=== PATIENT | male | born 1975 | race Caucasian/White ===

== ENCOUNTER 2016-07-28 09:35 | Emergency (ER) | payer MEDICAID ==
[~2016-07-28] VITALS: Ht 182.9 cm; Wt 140.6 kg
[~2016-07-28 09:35] MED LIST: HYDR-4446 PO; ZOLP10TA1 PO
[2016-07-28 09:51] VITALS: BP 139/73
--- NOTE | 2016-07-28 10:00 | NUR ---
Patient ambulated to bed 05.
--- NOTE | 2016-07-28 10:00 | NUR ---
40M BIB SELF C/O RT SIDED FACIAL SWELLING W/ RT SIDED BLURRY VISION X THIS MORNING; PT STATES " I JUST WOKE UP LIKE THIS"; PT C/O PRESSURE TO RT SIDE OF NECK, NON-RADIATING, 6/10 X 1 HR PRIOR TO ARRIVAL TO ER; PT DENIES TRAUMA OR INJURY TO SITE; PT A&OX4, PERRLA, BL LUNG SOUNDS CLEAR, RR EVEN/UNLABORED, SKIN IS WARM/DRY/INTACT AT THIS TIME; DENIES N/V/D AT THIS TIME; STEADY GAIT; PT RESTING IN BED W/ HOB ELEVATED AND IN LOWEST POSITION; POSITIONED FOR COMFORT; ER MD MADE AWARE OF STATUS. WILL CONTINUE TO MONITOR.
--- NOTE | 2016-07-28 10:01 | NUR ---
Dr. Brock evaluating patient at bedside.
[2016-07-28] MEDS ORDERED: cefTRIAXone 1,000 MG in LIDOCAINE 1% ED 2.1 ML IM ONE (10:05)
[2016-07-28] MEDS ORDERED: IBUPROFEN 600 MG TAB PO ONE (10:05)
--- NOTE | 2016-07-28 10:17 | NUR ---
PT TAKEN TO CT VIA W/C ACCOMPANIED BY [employer] AT THIS TIME
--- NOTE | 2016-07-28 10:27 | NUR ---
Patient back from CT via wheelchair per tech.
[2016-07-28 11:05] VITALS: BP 127/71
--- NOTE | 2016-07-28 11:05 | NUR ---
Patient discharged with v/s stable. Written and verbal after care instructions given and explained. Patient alert, oriented and verbalized understanding of instructions. Ambulatory with steady gait. All questions addressed prior to discharge. ID band removed. Patient advised to follow up with PMD. Rx of MOTRIN 600MG TAB & LEVAQUIN 500MG TAB given. Patient educated on indication of medication including possible reaction and side effects. Opportunity to ask questions provided and answered.
== END 2016-07-28 11:05 | disposition home or self-care (01) ==
LOC: MED 09:35
DX: L03.211 Cellulitis of face (principal); K21.9 Gastro-esophageal reflux disease without esophagitis; Z88.0 Allergy status to penicillin; Z98.84 Bariatric surgery status
CPT/HCPCS: 70450; 70486; 96372; 99284; J0696; J2001

== ENCOUNTER 2016-10-01 09:44 | Inpatient (IN) | payer MEDICAID ==
[~2016-10-01] VITALS: Ht 177.8 cm; Wt 137.4 kg
[2016-10-01 09:51] VITALS: BP 127/76
--- NOTE | 2016-10-01 09:56 | NUR ---
Patient ambulated to bed 4.
--- NOTE | 2016-10-01 10:00 | NUR ---
PATIENT PRESENTS TO ED WITH severe right lower/flank pain radiating ruq with n/v . PT STATES worst pain ever . DENIES diarrhea; SKIN IS PINK/WARM/DRY; AAOX4 WITH EVEN AND STEADY GAIT; LUNGS CLEAR BL; HR EVEN AND REGULAR; PT DENIES ANY FEVER, CP, SOB, OR COUGH AT THIS TIME; PATIENT STATES PAIN OF 10/10 AT THIS TIME; VSS; PATIENT POSITIONED FOR COMFORT; HOB ELEVATED; BEDRAILS UP X2; BED DOWN. ER MD MADE AWARE OF PT STATUS.
[2016-10-01] MEDS ORDERED: HYDROmorphone 1 MG/ML AMP IVP ONE ×2 (10:15→10:40)
[2016-10-01] MEDS ORDERED: ONDANSETRON 4 MG/2 ML VIAL IVP ONE (10:15)
[2016-10-01] MEDS ORDERED: NACL 0.9% 1,000 ML IV ONE ×3 (10:15→11:35)
[2016-10-01 10:46] LABS: HEMATOCRIT 39.9 % (36-52); HEMOGLOBIN 12.9 g/dL (12.0-18.0); MEAN CORPUSCULAR HEMOGLOBIN 27 pg (27-31); MEAN CORPUSCULAR HGB CONC 32 g/dL (33-37); MEAN CORPUSCULAR VOLUME 83 fL (80-94); PLATELET COUNT (AUTO) 218 K/uL (140-450); RED BLOOD CELL COUNT(AUTO) 4.82 MIL/uL (4.20-6.10); RED CELL DISTRIBUTION WIDTH 15.7 % (11.6-13.7); WHITE BLOOD COUNT (AUTO) 5.6 K/uL (4.8-10.8)
[2016-10-01 10:47] LABS: ANION GAP 16.9 (8-16); CALCIUM 8.6 mg/dL (8.5-10.1); CARBON DIOXIDE 24.5 mmol/L (21-32); CREATININE 1.1 mg/dL (0.7-1.3); POTASSIUM 4.4 mmol/L (3.5-5.1)
--- NOTE | 2016-10-01 10:49 | NUR ---
medicated for pain control, will continue to observe pain management---remains a/o x4 , sister at bedside. x2 sr up
[2016-10-01 10:54] LABS: TOTAL BILIRUBIN 0.5 mg/dL (0.0-1.0)
[2016-10-01 10:58] LABS: BAND % (MANUAL) 1 % (0-8); EOSINOPHILS % (MANUAL) 3 % (0-4); LYMPHOCYTES % (MANUAL) 36 % (20-46); MONOCYTES % (MANUAL) 3 % (5-12); NEUTROPHILS % (MANUAL) 57 (43-65)
[2016-10-01 10:59] LABS: LACTIC ACID 5.3 mmol/L (0.4-2.0)
[2016-10-01 11:03] LABS: ALBUMIN 3.9 g/dL (3.4-5.0)
[2016-10-01] MEDS ORDERED: DIAZEPAM PFS 10 MG/2 ML SYR ONE (11:08)
[2016-10-01] MEDS ORDERED: DIAZEPAM PFS 10 MG/2 ML SYR IVP ONE (11:10)
[2016-10-01] MEDS ORDERED: LEVOFLOXACIN 750 MG/D5W PREMIX 150 ML IV ONE (11:10)
[2016-10-01] MEDS ORDERED: VANCOMYCIN 1,000 MG in DEXTROSE 5% 250 ML IV ONE (11:10)
[2016-10-01 11:14] LABS: APPEARANCE,URINE CLEAR (CLEAR); BILIRUBIN,URINE NEGATIVE (NEGATIVE); BLOOD, URINE NEGATIVE (NEGATIVE); COLOR,URINE YELLOW (YELLOW); LEUKOCYTE ESTERASE ,URINE NEGATIVE (NEGATIVE); NITRITE, URINE NEGATIVE (NEGATIVE); PH,URINE 5.5 (5.0-9.0); PROTEIN,URINE NEGATIVE (NEGATIVE); UGLUCOSE NEGATIVE (NEGATIVE)
--- NOTE | 2016-10-01 11:15 | NUR ---
pt continues to sob c/o severe pain with seconds of relief----MD at bedside
[2016-10-01] MEDS ORDERED: HYDROmorphone PFS 2 MG/ML SYR IVP ONE ×2 (11:20→13:50)
[2016-10-01 11:40] LABS: BACTERIA,URINE 0-2 (RARE) /HPF (None Seen); SQUAMOUS EPITHELIAL CELL,UR 0-3 (FEW) /LPF (0-3 (FEW))
[2016-10-01 11:42] LABS: RBC,URINE NONE SEEN /HPF (0-5); WBC,URINE 0-2 /HPF (0-5)
--- NOTE | 2016-10-01 11:48 | NUR ---
notified CT requires 20ga or bigger iv---we have made 5 attempts with no success---pt currently has a 24ga
--- NOTE | 2016-10-01 12:36 | NUR ---
NO CONTRAST REQUIRED FOR CT NOW---PT WENT AND RETURNED FROM CT----CONTINUES TO ADMIT PAIN AT A TOLERABLE LEVEL 5/10 PAIN SCALE AT THIS TIME.
[2016-10-01] MEDS ORDERED: VANCOMYCIN 1,000 MG VIAL ONE (12:39)
[2016-10-01] MEDS ORDERED: ACETAMINOPHEN 325 MG TAB PO PRN (13:55)
[2016-10-01] MEDS ORDERED: DOCUSATE SODIUM 100 MG GELCAP PO PRN (13:55)
[2016-10-01] MEDS ORDERED: ONDANSETRON 4 MG/2 ML VIAL IM/IVP PRN (13:55)
[2016-10-01] MEDS ORDERED: HYDROcodone/APAP 7.5/325 MG 1 TAB PO PRN (13:55)
[2016-10-01] MEDS ORDERED: MORPHINE SULFATE 2 MG/ML SYR IVP PRN (13:55)
--- NOTE | 2016-10-01 14:24 | NUR ---
SITTING UP IN [facility]--ADMITS PAIN IS STARTING TO RISE 10/04 AT THIS TIME---WILL MEDICATE WRITTEN. A/O X4 HOLDING CONVERSATION WITH ME AT BEDSIDE. SISTER AT BEDSIDE. PT AWARE WILL BE ADMITTED
--- NOTE | 2016-10-01 14:27 | NUR ---
Pt transferred to Tele via [facility]
[2016-10-01 14:43] LABS: PARTIAL THROMBOPLASTIN TIME 27.2 secs (22-35.6); PROTHROMBIN TIME 10.2 secs (10.8-13.4)
[2016-10-01 14:57] LABS: MAGNESIUM 1.9 mg/dL (1.8-2.4); PHOSPHORUS 2.8 mg/dL (2.5-4.9); THYROID STIMULATING HORMONE 1.22 uIU/mL (0.34-3.74)
[2016-10-01 15:15] VITALS: BP 130/76
--- NOTE | 2016-10-01 15:20 | NUR ---
PATIENT ARRIVED TO THE UNIT FROM ER. PATIENT AWAKE, ALERT AND ORIENTED. PATIENT ON ROOM AIR. NO SOB. PATIENT REPORTS OF 5/10 ABD PAIN RADIATING TO HIS BACK. PATIENT WAS MEDICATED IN ER. WILL REASSESSES. IV LINE NOTED TO THE LEFT FOREARM. PATIENT PLACED ON TELE MONITORING. BED LOWERED WITH CALL LIGHT WITHIN REACH. WILL CONTINUE TO MONITOR
[2016-10-01] MEDS ORDERED: ZOLPIDEM 10 MG TAB PO ONE (15:25)
[2016-10-01] MEDS ORDERED: PHENOL/MENTHOL 177 ML BTL MM PRN (15:35)
[2016-10-01] MEDS: NACL 0.9% 1,000 ML IV SCH ×2 (15:46→22:30)
[2016-10-01 16:00] VITALS: BP 130/69
[2016-10-01] MEDS ORDERED: BENZOCAINE 20% 57 GM CAN MC PRN (16:15)
[2016-10-01] MEDS: HYDROmorphone 1 MG/ML AMP IVP PRN ×2 (17:57→21:07)
--- NOTE | 2016-10-01 18:48 | NUR ---
ATTEMPTED TO INSERT NGT. PATIENT DID NOT TOLERATE WELL. PATIENT REFUSED TO HAVE IT REINSERTED. PATIENT SEEN BY DR MERCHANT AND WAS EDUCATED ABOUT THE RISK AND COMPLICATION OF HAVING A PERFORATED BOWEL IF HE DOES NOT COMPLY WITH HAVING AN NGT. PATIENT VERBALIZED UNDERSTANDING
--- NOTE | 2016-10-01 19:20 | NUR ---
PATIENT REPORT GIVEN AT BEDSIDE. PATIENT ENDORSED IN STABLE CONDITION
--- NOTE | 2016-10-01 19:25 | NUR ---
RECEIVED REPORTS FROM DAY RN. PATIENT RESTING IN BED, NO S/S OF ACUTE DISTRESS NOTED, ALERT AWAKE AND ORIENTED X4. PATIENT DENIES PAIN AT THIS TIME. IV PATENT AND INTACT, FLUIDS INFUSING WELL. PLAN OF CARE DISCUSSED, VERBALIZED UNDERSTANDING. CALL LIGHT WITHIN REACH, SAFETY MEASURE ENSURED, WILL CONTINUE TO MONITOR.
--- NOTE | 2016-10-01 19:45 | NUR ---
PATIENT SEEN AND EXAMINED BY DR. CAMARA.
[2016-10-01 19:59] LABS: INR 1.1 (0.8-1.2); PARTIAL THROMBOPLASTIN TIME 27.6 secs (22-35.6)
[2016-10-01 20:00] VITALS: BP 122/71
--- NOTE | 2016-10-01 21:07 | NUR ---
PATIENT REPORTED LOWER BACK PAIN 8. DILAUDID GIVEN ORDERED. WILL CONTINUE TO MONITOR
--- NOTE | 2016-10-01 21:50 | NUR ---
REASSESSED PAIN LEVEL AT 2136, PATIENT STATED " PAIN MEDICATION DOES NOT WORK. CAN I HAVE NORCO NOW?" MADE DR. CAMARA AWARE THAT PATIENT REQUESTED NORCO. DR. JAX GOODWIN," I WILL GO AND ASSESS THE PATIENT."
--- NOTE | 2016-10-01 22:10 | NUR ---
DR. CAMARA SAYS," YOU CAN GIVE HIM NORCO."
--- NOTE | 2016-10-01 22:23 | NUR ---
IS AWARE THAT PATIENT RECEIVED 2MG DILAUDID. PATIENT BP 12/73, HR 66. LOWER BACK PAIN LEVEL 6/10 AT THIS TIME, WILL MEDICATE NORCO ORDERED.
[2016-10-01] MEDS: HYDROcodone/APAP 10/325 MG 1 TAB TAB PO PRN (22:26)
[2016-10-02] VITALS: BP 120/63
--- NOTE | 2016-10-02 00:10 | NUR ---
PATIENT REPORTED PAIN 11/04, VITAL SIGNS TAKEN, WITHIN NORMAL RANGE. DILAUDID GIVEN ORDERED, WILL CONTINUE TO MONITOR. Addendum: 10/02/16 at 0351 by Davida Massey RN DILAUDID GIVEN AT 0102.
[2016-10-02] MEDS: ZOLPIDEM 10 MG TAB PO PRN ×3 (01:02→22:33)
[2016-10-02] MEDS: HYDROmorphone 1 MG/ML AMP IVP PRN ×13 (01:02→21:27)
[2016-10-02] MEDS: HYDROcodone/APAP 10/325 MG 1 TAB TAB PO PRN ×5 (02:59→20:08)
--- NOTE | 2016-10-02 02:59 | NUR ---
PATIENT REPORTED PAIN 6/10. NORCO GIVEN ORDERED, WILL CONTINUE TO MONITOR.
[2016-10-02 04:00] VITALS: BP 111/67
[2016-10-02] MEDS: NACL 0.9% 1,000 ML IV SCH ×2 (04:22→11:00)
--- NOTE | 2016-10-02 04:28 | NUR ---
PATIENT STATED PAIN 8/10. DILAUDID GIVEN ORDERED, WILL CONTINUE TO MONITOR.
[2016-10-02 06:25] LABS: BASOPHILS # (AUTO) 0.1 K/uL (0.00-0.22); EOSINOPHILS # (AUTO) 0.1 K/uL (0-0.4); MONOCYTES # (AUTO) 0.3 K/uL (0.8-1.0); NEUTROPHILS % (AUTO) 61.8 % (42.2-75.2); RED BLOOD CELL COUNT(AUTO) 3.99 MIL/uL (4.20-6.10); WHITE BLOOD COUNT (AUTO) 4.6 K/uL (4.8-10.8)
--- NOTE | 2016-10-02 06:35 | NUR ---
PATIENT HAS BEEN SCREENED AND CATEGORIZED HIGH NUTRITION RISK. PATIENT WILL BE SEEN WITHIN 1-2 DAYS OF ADMISSION. 10/02/16-10/03/16 JOHN ESTRADA MS, RDN
[2016-10-02 06:54] LABS: BASOPHILS % (AUTO) 1.8 % (0.0-2.0); EOSINOPHILS % (AUTO) 2.1 % (0.0-4.0); HEMATOCRIT 33.4 % (36-52); HEMOGLOBIN 10.6 g/dL (12.0-18.0); LYMPHOCYTES # (AUTO) 1.3 K/uL (2.0-11.5); LYMPHOCYTES % (AUTO) 27.5 % (20.5-51.1); MEAN CORPUSCULAR HEMOGLOBIN 27 pg (27-31); MEAN CORPUSCULAR HGB CONC 32 g/dL (33-37); MEAN CORPUSCULAR VOLUME 84 fL (80-94); MONOCYTES % (AUTO) 6.8 % (1.7-9.3); NEUTROPHILS # (AUTO) 2.8 K/uL (1.8-7.7); PLATELET COUNT (AUTO) 173 K/uL (140-450); RED CELL DISTRIBUTION WIDTH 15.4 % (11.6-13.7)
--- NOTE | 2016-10-02 07:26 | NUR ---
RECEIVED PATIENT REPORT AT BEDSIDE. PATIENT AWAKE, ALERT AND ORIENTED. PATIENT C/O 6/10 LEFT FLANK PAIN. PATIENT WAS MEDICATED. WILL CONTINUE TO MONITOR. IV LINE TO THE LEFT WRIST INTACT WITH IVF INFUSING WELL. PATIENT ON TELE MONITORING. BED LOWERED WITH CALL LIGHT WITHIN REACH
--- NOTE | 2016-10-02 07:26 | NUR ---
ENDORSED PLAN OF CARE TO DAY RN. PATIENT IS IN STABLE CONDITION.
[2016-10-02 07:43] LABS: ANION GAP 13.2 (8-16); CALCIUM 7.7 mg/dL (8.5-10.1); CARBON DIOXIDE 24.5 mmol/L (21-32); CREATININE 0.8 mg/dL (0.7-1.3); POTASSIUM 3.7 mmol/L (3.5-5.1)
[2016-10-02 08:00] VITALS: BP 125/72
[2016-10-02 09:13] LABS: T4 (THYROXINE) 7.4 ug/dL (4.5-12.0)
--- NOTE | 2016-10-02 10:03 | NUR ---
10/02/16 RD INITIAL ASSESSMENT COMPLETED PLEASE REFER TO NUTRITION ASSESSMENT UNDER CARE ACTIVITY FOR ESTIMATED NUTRITIONAL NEEDS. RD RECOMMENDATIONS: 1. CONTINUE NPO MEDICALLY APPROPRIATE. 2. INITIATED NUTRITION WHEN MEDICALLY APPROPRIATE. 3. CONSULT RD PRN. 4. RD WILL F/U 2-3 DAYS; HIGH RISK. JOHN ESTRADA MS, RDN
[2016-10-02 12:00] VITALS: BP 127/77
--- NOTE | 2016-10-02 13:30 | NUR ---
PATIENT TAKEN OFF THE UNIT FOR SURGERY
[2016-10-02] MEDS ORDERED: fentaNYL 0.05 MG/ML VIAL ONE (13:57)
[2016-10-02] MEDS ORDERED: MIDAZOLAM 2 MG/2 ML VIAL ONE (13:57)
[2016-10-02] MEDS ORDERED: ROCURONIUM 50 MG/5 ML VIAL IV ONE (13:58)
[2016-10-02] MEDS ORDERED: PHENYLEPHRINE 10 MG/ML VIAL ONE (13:58)
[2016-10-02] MEDS ORDERED: DESFLURANE 240 ML BTL INH ONE (13:58)
[2016-10-02] MEDS ORDERED: KETOROLAC 30 MG/ML VIAL ONE (13:58)
[2016-10-02] MEDS ORDERED: SUCCINYLCHOLINE CHLORIDE 200 MG/10 ML VIAL IVP ONE (13:58)
[2016-10-02] MEDS ORDERED: DEXAMETHASONE 4 MG/ML VIAL ONE (13:58)
[2016-10-02] MEDS ORDERED: LIDOCAINE 2% 100 MG/5 ML SYR IVP ONE (13:58)
[2016-10-02] MEDS ORDERED: ONDANSETRON 4 MG/2 ML VIAL ONE (13:58)
[2016-10-02] MEDS ORDERED: PROPOFOL 200 MG/20 ML VIAL IV ONE (13:58)
[2016-10-02] MEDS ORDERED: GLYCOPYRROLATE 0.2 MG/ML VIAL ONE (13:58)
[2016-10-02] MEDS ORDERED: LEVOFLOXACIN 500 MG/D5W PREMIX 100 ML IV SCH (14:15)
[2016-10-02] MEDS ORDERED: ONDANSETRON 4 MG/2 ML VIAL IVP PRN (14:45)
[2016-10-02 15:07] LABS: HEMOGLOBIN A1C 5.6 % (4.8-5.6)
[2016-10-02] MEDS ORDERED: BUPIVACAINE-MPF/EPI 0.25% 30 ML VIAL INJ ONE (15:36)
[2016-10-02] MEDS ORDERED: HYDROmorphone PFS 2 MG/ML SYR ONE ×2 (16:18→16:47)
[2016-10-02 17:17] VITALS: BP 130/77
--- NOTE | 2016-10-02 17:17 | NUR ---
PATIENT BACK IN THE UNIT FROM SURGERY. PATIENT AWAKE, ALERT AND ORIENTED. PATIENT REPORTS OF 8/10 ABD PAIN. DRESSING NOTED TO THE ABD CLEAN DRY AND INTACT. NGT IN PLACE. NGT SET TO LOW INTERMITTENT SUCTION. TEMP 98.0 BP: 130/77 HR: 71 O2SAT: 99% ON ROOM AIR. WILL CONTINUE TO MONITOR
[2016-10-02] MEDS: DEXT 5% / NACL 0.45% 1,000 ML IV SCH (17:42)
--- NOTE | 2016-10-02 18:53 | NUR ---
PATIENT CALMLY RESTING IN BED, WATCHING VIDEOS ON HIS PHONE. PATIENT REPORTS OF DECREASED PAIN OF 3/10 IN HIS ABD
--- NOTE | 2016-10-02 19:18 | NUR ---
PATIENT REPORT GIVEN AT BEDSIDE. PATIENT ENDORSED IN STABLE CONDITION
--- NOTE | 2016-10-02 19:19 | NUR ---
PATIENT IS CURRENTLY RESTING IN BED HAS NGTUBE CONNECTED TO LOW INTERMITTENT SUCTION.NGT WELL SECURED WITH TEGADERM.PATIENT DENIES PAIN AT THIS TIME NO COMPLAINS OF NAUSEA.PATIENT HAS A MIDLINE INCISION TO ABDOMEN COVERED WITH A DRESSING. PATIENT RESTING IN BED AND HAS SCD'S TO BOTH LOWER EXTREMITIES EDUCATION GIVEN ON THE IMPORTANCE OF SCD'S TO PREVENT DVT PT VERBALIZES UNDERSTANDING.
[2016-10-02 20:00] VITALS: BP 105/70
--- NOTE | 2016-10-02 20:00 | NUR ---
Patient's Plan of Care was discussed and reviewed with CELL BIOLOGY SCIENTIST: LIZ Andrew
--- NOTE | 2016-10-02 20:08 | NUR ---
PATIENT COMPLAINS OF PAIN MODERATE PAIN TO ABDOMEN WAS MEDICATED WITH NORCO ORDERED WILL CONTINUE TO MONITOR.
--- NOTE | 2016-10-02 22:33 | NUR ---
PATIENT IS CURRENTLY RESTING IN BED USING HIS PHONE ,PATIENT COMPLAINS THAT HE CANNOT SLEEP AND COULDN'T SLEEP LAST NIGHT.PATIENT IS REQUESTING TO HAVE A SLEEPING PILL HE WAS MEDICATED WITH AMBIEN WILL CONTINUE TO MONITOR.
--- NOTE | 2016-10-03 00:03 | NUR ---
PATIENT RESTING IN BED CALM AT THIS TIME.WILL CONTINUE TO MONITOR.
[2016-10-03 00:05] VITALS: BP 118/61
[2016-10-03] MEDS: DEXT 5% / NACL 0.45% 1,000 ML IV SCH ×2 (00:33→08:05)
[2016-10-03] MEDS: HYDROmorphone 1 MG/ML AMP IVP PRN ×5 (00:42→23:14)
[2016-10-03] MEDS: HYDROcodone/APAP 10/325 MG 1 TAB TAB PO PRN ×2 (02:50→07:30)
--- NOTE | 2016-10-03 02:50 | NUR ---
PATIENT VOIDED 500ML OF LIGHT DARIANA URINE IT WAS STRAINED.PATIENT ASSISTED BACK IN BED PATIENT COMPLAINS OF MODERATE PAIN WILL BE MEDICATED WITH NORCO ORDERED.
--- NOTE | 2016-10-03 02:55 | NUR ---
PATIENT WAS GIVEN BLANKETS PT STATES,"HIS COLD." CALL LIGHT WITHIN REACH WILL CONTINUE TO MONITOR.
[2016-10-03 04:00] VITALS: BP 121/64
--- NOTE | 2016-10-03 05:18 | NUR ---
PATIENT IS CURRENTLY RESTING IN BED,IVF INFUSING WELL IV SITE PATENT.NEEDS CONTINUE TO BE MET.
--- NOTE | 2016-10-03 06:19 | NUR ---
MD SCANLON CAME TO MAKE ROUNDS AND SPOKE TO THE PATIENT,SHE HAS BEEN INFORMED THAT PATIENT HASN'T HAD ANY NAUSEA OR VOMITING TONIGHT.SHE IS AWARE THAT PATIENT WANTS THE NGTUBE REMOVED,AND SHE IS AWARE THAT PATIENT NEEDS TO HAVE ADVANCE DIRECTIVE PAPER IN THE CHART.SHE ASKED THE PATIENT TO BRING IT.SHE EXAMINED THE PATIENT AND I ALSO ASKED MD IF AFTER NGT REMOVAL PATIENT CAN EAT.MD SCANLON SAID PATIENT NEEDS TO WAIT FOR MD RIOS SO FOR NOW HE STILL NPO. MD INFORMED THAT PATIENT HAS BEEN MEDICATION THROUGHOUT THE NIGHT FOR PAIN ORDERED.PATIENT ENCOURAGED TO USE THE INCENTIVE SPIROMETER PATIENT VERBALIZES UNDERSTANDING.
[2016-10-03 07:07] LABS: BASOPHILS # (AUTO) 0.1 K/uL (0.00-0.22); BASOPHILS % (AUTO) 1.2 % (0.0-2.0); EOSINOPHILS # (AUTO) 0.1 K/uL (0-0.4); EOSINOPHILS % (AUTO) 1.1 % (0.0-4.0); HEMATOCRIT 34.2 % (36-52); HEMOGLOBIN 10.7 g/dL (12.0-18.0); LYMPHOCYTES # (AUTO) 1.2 K/uL (2.0-11.5); LYMPHOCYTES % (AUTO) 16.2 % (20.5-51.1); MEAN CORPUSCULAR HEMOGLOBIN 26 pg (27-31); MEAN CORPUSCULAR HGB CONC 31 g/dL (33-37); MEAN CORPUSCULAR VOLUME 83 fL (80-94); MONOCYTES # (AUTO) 0.5 K/uL (0.8-1.0); MONOCYTES % (AUTO) 7.6 % (1.7-9.3); NEUTROPHILS # (AUTO) 5.3 K/uL (1.8-7.7); NEUTROPHILS % (AUTO) 73.9 % (42.2-75.2); PLATELET COUNT (AUTO) 195 K/uL (140-450); RED BLOOD CELL COUNT(AUTO) 4.11 MIL/uL (4.20-6.10); RED CELL DISTRIBUTION WIDTH 15.3 % (11.6-13.7); WHITE BLOOD COUNT (AUTO) 7.2 K/uL (4.8-10.8)
--- NOTE | 2016-10-03 07:11 | NUR ---
PATIENT STABLE REPORT ENDORSED AT BEDSIDE TO DEEPIKA FAIRCHILD PATIENT COMPLAINS OF PAIN REQUESTING NORCO FOR PAIN.DEEPIKA FAIRCHILD AWARE HE WILL RESUME CARE OF THE PATIENT.
--- NOTE | 2016-10-03 07:15 | NUR ---
RECEIVED PATIENT AT BEDSIDE. PATIENT AWAKE, ALERT AND ORIENTED. NO S/S OF DISTRESS NOTED. PATIENT ON ROOM AIR. DRESSING TO THE ABD CLEAN DRY AND INTACT. IV LINE TO THE RIGHT AC INTACT WITH IVF INFUSING WELL. PATIENT C/O 10/04 ABD PAIN. WILL MEDICATE. PATIENT ON TELE MONITORING. BED LOWERED WITH CALL LIGHT WITHIN REACH. WILL CONTINUE TO MONITOR
[2016-10-03 07:18] LABS: ANION GAP 10.3 (8-16); CALCIUM 7.7 mg/dL (8.5-10.1); CARBON DIOXIDE 26.8 mmol/L (21-32); CREATININE 0.8 mg/dL (0.7-1.3); POTASSIUM 4.1 mmol/L (3.5-5.1)
[2016-10-03 07:33] VITALS: BP 123/59
--- NOTE | 2016-10-03 08:20 | NUR ---
PATIENT AMBULATED 5 TIMES AROUND THE UNIT. NO S/S OF DISTRESS NOTED.
[2016-10-03] MEDS ORDERED: HYDROmorphone 1 MG/ML AMP IVP PRN ×2 (10:00→15:00)
[2016-10-03] MEDS ORDERED: CALCIUM CARBONATE 500 MG TAB PO SCH (10:16)
[2016-10-03 11:26] VITALS: BP 122/78
[2016-10-03] MEDS ORDERED: HYDROmorphone 1 MG/ML AMP IVP SCH (12:31)
[2016-10-03] MEDS: HYDROcodone/APAP 10/325 MG 1 TAB TAB PO SCH ×2 (15:06→19:09)
[2016-10-03] MEDS: LORazepam 2 MG/ML VIAL IM/IVP PRN (15:07)
[2016-10-03 16:00] VITALS: BP 109/68
--- NOTE | 2016-10-03 19:00 | NUR ---
SPOKE WITH DR EUGENE ON THE PHONE AND INFORMED HIM ABOUT THE PATIENT'S C/O PAIN AND REQUEST FOR MEDICINE DOSAGE ADJUSTMENT. INFORMED OF THE PAIN MEDICATION THAT THE PATIENT IS CURRENTLY RECEIVING. NO NEW ORDERS RECEIVED
--- NOTE | 2016-10-03 19:10 | NUR ---
DR EUGENE CALLED BACK AND STATES THAT HE WILL PUT NEW ORDERS
--- NOTE | 2016-10-03 19:20 | NUR ---
PATIENT ENDORSED TO THE NIGHT NURSE
--- NOTE | 2016-10-03 19:21 | NUR ---
RECEIVED REPORT FROM DAY RN FOR CONTINUITY OF CARE. PATIENT IS ALERT AND ORIENTED X4, DISCUSSED PLAN OF CARE WITH PATIENT, VERBALIZED UNDERSTANDING. SHIFT ASSESSMENT DONE, VITAL SIGNS STABLE. NO S/S OF RESPIRATORY DISTRESS OR DISCOMFORT NOTED ON ROOM AIR. PATIENT STATES PAIN, WAS PREVIOUSLY MEDICATED. IV TO RT AC AND LT WRIST PATENT AND FLUSHED. PATIENT HAS SURGICAL INCISION TO ABDOMEN, WITH DRESSING DRY AND INTACT. SAFETY/ FALL PRECAUTIONS ENFORCED.
[2016-10-03 20:00] VITALS: BP 126/72
--- NOTE | 2016-10-03 20:15 | NUR ---
PT C/O SEVERE PAIN, MEDICATED PER MD ORDER. PATIENT NOW AMBULATING IN HALLWAY NO S/S OF DISTRESS OR DISCOMFORT NOTED.
[2016-10-03] MEDS: CALCIUM CARBONATE 500 MG TAB PO SCH (20:52)
[2016-10-03] MEDS: ZOLPIDEM 10 MG TAB PO PRN (20:52)
--- NOTE | 2016-10-03 20:52 | NUR ---
DUE MEDICATIONS ADMINISTERED, TOLERATED WELL. PATIENT HAD 700 ML LIGHT DARIANA URINE NOTED. CALL LIGHT WITHIN REACH.
--- NOTE | 2016-10-03 22:30 | NUR ---
PATIENT C/O ABDOMINAL PAIN, INFORMED PT THAT PAIN MEDICATIONS ARE NOT DUE YET, VERBALIZED UNDERSTANDING. CALL LIGHT WITHIN REACH.
--- NOTE | 2016-10-03 23:14 | NUR ---
PT C/O ABDOMINAL PAIN, VITAL SIGNS STABLE AND MEDICATED PER MD ORDER. SAFETY MEASURES ENFORCED, CALL LIGHT WITHIN REACH.
[2016-10-04] VITALS: BP 130/76
[2016-10-04] MEDS: HYDROcodone/APAP 10/325 MG 1 TAB TAB PO SCH ×2 (00:06→05:03)
[2016-10-04] MEDS: LORazepam 2 MG/ML VIAL IM/IVP PRN (00:59)
--- NOTE | 2016-10-04 00:59 | NUR ---
PT C/O ANXIETY, SHAKING IN BED AND IRRITABLE, EDUCATED PT ON RELAXATION TECHNIQUES PT STATES, "THIS MEDICATIONS IS DOING NOTHING FOR ME I NEED ANXIETY MEDS." VITAL SIGNS TAKEN: B/P 133/78, HR 115, O2 SAT 95%. MEDICATED PER MD ORDER. CALL LIGHT WITHIN REACH.
--- NOTE | 2016-10-04 02:30 | NUR ---
PATIENT ASLEEP AT THIS TIME, NO S/S OF DISTRESS OR DISCOMFORT NOTED. CALL LIGHT WITHIN REACH.
--- NOTE | 2016-10-04 04:00 | NUR ---
PATIENT SLEEPING AT THIS TIME, NO S/S OF DISTRESS OR DISCOMFORT NOTED. CALL LIGHT WITHIN REACH.
[2016-10-04] MEDS: HYDROmorphone 1 MG/ML AMP IVP PRN ×5 (05:51→21:38)
--- NOTE | 2016-10-04 05:56 | NUR ---
PATIENT MEDICATED FOR PAIN PER MD ORDER, VITAL SIGNS STABLE. CALL LIGHT WITHIN REACH.
[2016-10-04 06:11] LABS: ANION GAP 10.7 (8-16); CALCIUM 8.2 mg/dL (8.5-10.1); CARBON DIOXIDE 28.4 mmol/L (21-32); CREATININE 0.7 mg/dL (0.7-1.3); POTASSIUM 4.1 mmol/L (3.5-5.1)
[2016-10-04 06:16] LABS: BASOPHILS # (AUTO) 0.1 K/uL (0.00-0.22); BASOPHILS % (AUTO) 0.9 % (0.0-2.0); EOSINOPHILS # (AUTO) 0.2 K/uL (0-0.4); EOSINOPHILS % (AUTO) 3.3 % (0.0-4.0); HEMATOCRIT 32.2 % (36-52); HEMOGLOBIN 10.4 g/dL (12.0-18.0); LYMPHOCYTES # (AUTO) 1.2 K/uL (2.0-11.5); LYMPHOCYTES % (AUTO) 21.4 % (20.5-51.1); MEAN CORPUSCULAR HEMOGLOBIN 27 pg (27-31); MEAN CORPUSCULAR HGB CONC 32 g/dL (33-37); MEAN CORPUSCULAR VOLUME 84 fL (80-94); MONOCYTES # (AUTO) 0.4 K/uL (0.8-1.0); MONOCYTES % (AUTO) 7.1 % (1.7-9.3); NEUTROPHILS # (AUTO) 3.7 K/uL (1.8-7.7); NEUTROPHILS % (AUTO) 67.3 % (42.2-75.2); PLATELET COUNT (AUTO) 190 K/uL (140-450); RED BLOOD CELL COUNT(AUTO) 3.84 MIL/uL (4.20-6.10); RED CELL DISTRIBUTION WIDTH 15.3 % (11.6-13.7); WHITE BLOOD COUNT (AUTO) 5.6 K/uL (4.8-10.8)
--- NOTE | 2016-10-04 07:16 | NUR ---
Patient's Plan of Care was discussed and reviewed with XRAY TECH: SARA Andrew
--- NOTE | 2016-10-04 07:16 | NUR ---
ASSUMED CONTINUITY OF CARE. NO SIGNS AND SYMPTOMS OF ACUTE DISTRESS NOTED. INITIAL ASSESSMENT DONE. KEEP COMFORTABLE ON BED. EXPLAINED DIAGNOSIS, PLAN OF CARE, POST-OP CARE, PAIN MANAGEMENT TEACHING, DIET, USE OF CALL LIGHT/BED/TV/BATHROOM. VERBALIZED UNDERSTANDING. CALL LIGHT WITHIN REACH.
--- NOTE | 2016-10-04 07:19 | NUR ---
ENDORSED PATIENT TO DAY RN FOR CONTINUITY OF CARE, PATIENT IS IN STABLE CONDITION.
[2016-10-04 08:00] VITALS: BP 135/77
[2016-10-04] MEDS: CALCIUM CARBONATE 500 MG TAB PO SCH ×2 (08:39→20:10)
[2016-10-04] MEDS ORDERED: METHOCARBAMOL 500 MG TAB PO SCH (09:04)
--- NOTE | 2016-10-04 09:39 | NUR ---
CM NOTE INITIAL REVIEW FAXED TO [facility] [phone] [place] [phone]
--- NOTE | 2016-10-04 09:45 | NUR ---
AMBULATES ON HALLWAY. TOLERATED WELL. NO SOB, NOTED.
[2016-10-04 11:15] VITALS: BP 136/74
[2016-10-04] MEDS ORDERED: oxyCODONE/APAP 5/325 MG 1 TAB TAB PO SCH (12:00)
[2016-10-04] MEDS: METHOCARBAMOL 500 MG TAB PO SCH ×2 (13:04→17:42)
--- NOTE | 2016-10-04 13:10 | NUR ---
DR. RODRIGUEZ AND DR. JURADO WENT INSIDE PT. ROOM AND SPOKE TO PT..
[2016-10-04 15:40] VITALS: BP 134/77
--- NOTE | 2016-10-04 16:20 | NUR ---
AMBULATES ON HALLWAY WITHOUT ASSISTANCE. TOLERATED WELL. NO DISCOMFORT NOTICED.
[2016-10-04] MEDS: oxyCODONE/APAP 5/325 MG 1 TAB TAB PO SCH ×2 (17:02→20:10)
--- NOTE | 2016-10-04 17:55 | NUR ---
DR. RIOS CAME, SEEN PT, REMOVED ABD DRESSING AND ASKED TO APPLY BETADINE AND LEAVE OPEN TO AIR.
--- NOTE | 2016-10-04 19:16 | NUR ---
BEDSIDE REPORT GIVEN TO CONSUELO STONE. IN STABLE CONDITION.
--- NOTE | 2016-10-04 19:25 | NUR ---
RECEIVED FROM AM NURSE IN BE PLAYING A GAME ON A Apiary MACHINE. A/O X 4. ROM X 4. S/P REPAIR UMBILICAL HERNIA /LYSIS AND ADHESIONS. INCISION SITE INTACT AND NO BLEEDING. OPEN TO AIR ORDERED. AFEBRILE. ORIENTED X 4. CLEAR SPEECH. CARE PLANS FOR THE NIGHT DISCUSSED WITH HIM AND CALL LIGHT WITH IN REACH.
[2016-10-04] MEDS: ZOLPIDEM 10 MG TAB PO PRN (21:37)
--- NOTE | 2016-10-04 21:47 | NUR ---
PT. COMPLAINED THAT THE PILL PAIN RELIEVER IS NOT WORKING WELL WITH HIM. MEDICATED WITH DILAUDID PRN FOR PAIN RELIEVER 1 MG IVP REQUESTED. PT. ALERT AND ORIENTED X 1. SEEN PT. WALKING DOWN THE HALLWAY HOW MANY TIMES PRIOR ASKING FOR DILAUDID. ORIENTED X 4. VERBALIZES WELL.
--- NOTE | 2016-10-04 23:30 | NUR ---
SLEEPING AT THIS TIME.
[2016-10-05] MEDS: oxyCODONE/APAP 5/325 MG 1 TAB TAB PO SCH ×3 (00:10→08:37)
[2016-10-05 00:14] VITALS: BP 133/81
--- NOTE | 2016-10-05 04:14 | NUR ---
SLEEPING STILL. ABLE TO AMBULATE AROUND UNIT WHEN AWAKE. ABLE TO USE CALL LIGHT FOR HELP. NO RESTLESSNESS NOTED.
[2016-10-05 05:41] LABS: BASOPHILS % (AUTO) 0.7 % (0.0-2.0); EOSINOPHILS # (AUTO) 0.2 K/uL (0-0.4); EOSINOPHILS % (AUTO) 5.2 % (0.0-4.0); HEMATOCRIT 30.9 % (36-52); LYMPHOCYTES # (AUTO) 0.9 K/uL (2.0-11.5); LYMPHOCYTES % (AUTO) 20.7 % (20.5-51.1); MEAN CORPUSCULAR HEMOGLOBIN 27 pg (27-31); MEAN CORPUSCULAR HGB CONC 32 g/dL (33-37); MEAN CORPUSCULAR VOLUME 83 fL (80-94); MONOCYTES # (AUTO) 0.3 K/uL (0.8-1.0); MONOCYTES % (AUTO) 7.6 % (1.7-9.3); NEUTROPHILS # (AUTO) 2.8 K/uL (1.8-7.7); NEUTROPHILS % (AUTO) 65.8 % (42.2-75.2); PLATELET COUNT (AUTO) 207 K/uL (140-450); RED BLOOD CELL COUNT(AUTO) 3.71 MIL/uL (4.20-6.10); RED CELL DISTRIBUTION WIDTH 15.3 % (11.6-13.7); WHITE BLOOD COUNT (AUTO) 4.2 K/uL (4.8-10.8)
[2016-10-05 05:53] LABS: ANION GAP 10.6 (8-16); CALCIUM 8.1 mg/dL (8.5-10.1); CARBON DIOXIDE 28.8 mmol/L (21-32); CREATININE 0.7 mg/dL (0.7-1.3); POTASSIUM 3.4 mmol/L (3.5-5.1)
--- NOTE | 2016-10-05 07:26 | NUR ---
SLEEPING STILL WAKES UP WHEN TOUCHED. ENDORSED TO THE NEXT NURSE FOR CONTINUITY OF CARE.
[2016-10-05 07:50] VITALS: BP 127/79
[2016-10-05] MEDS: HYDROmorphone 1 MG/ML AMP IVP PRN (07:59)
[2016-10-05] MEDS ORDERED: DOCU-264 PO (08:14)
[2016-10-05] MEDS ORDERED: ACET-5629 PO (08:14)
--- NOTE | 2016-10-05 08:44 | NUR ---
CM NOTE CONCURRENT REVIEW FAXED TO [facility] [phone] [place] [phone]
[2016-10-05] MEDS: CALCIUM CARBONATE 500 MG TAB PO SCH (09:28)
[2016-10-05] MEDS: METHOCARBAMOL 500 MG TAB PO SCH (09:29)
--- NOTE | 2016-10-05 09:45 | NUR ---
SS NOTE: PT'S CHART REVIEWED, NO ANTICIPATED D/C NEEDS AT THIS TIME
--- NOTE | 2016-10-05 11:20 | NUR ---
D/C VIA WHEELCHAIR ACCOMPANIED BY PT. SISTER AND SOME FAMILY MEMBERS. AWAKE, ALERT, AND ORIENTED X4. IN STABLE CONDITION. INFORMED CHARGE NURSE JERMAIN STONE.
== END 2016-10-05 11:20 | disposition home or self-care (01) | DRG 227 ==
LOC: MED 09:44 → MTU 14:27
PROVIDERS: ADMIT Family Medicine; ATTEND Family Medicine
PROC: 0DN80ZZ Release Small Intestine, Open Approach (ICD-10-PCS; 2016-10-02)
PROC: 0WQF0ZZ Repair Abdominal Wall, Open Approach (ICD-10-PCS; principal; 2016-10-02 13:30)
DX: K43.0 Incisional hernia with obstruction, without gangrene (principal); N17.0 Acute kidney failure with tubular necrosis; N13.2 Hydronephrosis with renal and ureteral calculous obstruction; Z66 Do not resuscitate; I16.0 Hypertensive urgency; D64.9 Anemia, unspecified; E11.9 Type 2 diabetes mellitus without complications; Z68.41 Body mass index [BMI] 40.0-44.9, adult; K46.9 Unspecified abdominal hernia without obstruction or gangrene; E83.51 Hypocalcemia; G89.29 Other chronic pain; M54.5 Low back pain; E66.9 Obesity, unspecified; E66.01 Morbid (severe) obesity due to excess calories; E87.6 Hypokalemia; I10 Essential (primary) hypertension; K21.9 Gastro-esophageal reflux disease without esophagitis; Z88.1 Allergy status to other antibiotic agents; Z98.84 Bariatric surgery status; Z90.49 Acquired absence of other specified parts of digestive tract; Z83.3 Family history of diabetes mellitus; Z82.49 Family history of ischemic heart disease and other diseases of the circulatory system; Z87.891 Personal history of nicotine dependence; Z82.5 Family history of asthma and other chronic lower respiratory diseases
CPT/HCPCS: 36415; 71010; 80048; 80053; 81001; 82150; 82360; 83036; 83605; 83690; 83735; 83880; 84100; 84436; 84443; 84479; 84484; 85025; 85610; 85730; 86886; 86900; 86901; 87040; 87081; 93005; 96365; 96366; 96367; 96375; 96376; 99285; J0330; J1100; J1170; J1885; J1956; J2001; J2060; J2250; J2270; J2370; J2405; J2704; J3010; J3360; J3370; J3490; J7030; J7060

== ENCOUNTER 2016-10-19 03:00 | Emergency (ER) | payer MEDICAID ==
[~2016-10-19] VITALS: Ht 180.3 cm; Wt 94.8 kg
[~2016-10-19 03:00] MED LIST changes: +ACET-5629 PO; +DOCU-264 PO; -HYDR-4446 PO
[2016-10-19 03:05] VITALS: BP 139/89
[2016-10-19 03:24] VITALS: BP 139/89
[2016-10-19] MEDS ORDERED: BACITRACIN OINT 500 UNITS/GM PKT TP ONE (03:24)
== END 2016-10-19 03:24 | disposition home or self-care (01) ==
LOC: MED 03:00
DX: K91.840 Postprocedural hemorrhage of a digestive system organ or structure following a digestive system procedure (principal); K21.9 Gastro-esophageal reflux disease without esophagitis; Z90.89 Acquired absence of other organs; Z98.84 Bariatric surgery status; Z88.1 Allergy status to other antibiotic agents
CPT/HCPCS: 99281

== ENCOUNTER 2021-08-10 17:33 | Emergency (ER) | payer MEDICAID ==
[~2021-08-10] VITALS: Ht 182.9 cm; Wt 112.9 kg
[~2021-08-10 17:33] MED LIST changes: -DOCU-264 PO; +DOCU-300 PO
[2021-08-10 17:52] VITALS: BP 129/70
[2021-08-10] MEDS ORDERED: HYDROcodone/APAP 5/325 MG 1 TAB TAB PO ONE (18:55)
--- NOTE | 2021-08-10 19:29 | NUR ---
PATIENT MEDICATED PER ORDERED. PATIENT PAIN AT 7/10
[2021-08-10] MEDS ORDERED: ACET-8386 PO (20:57)
--- NOTE | 2021-08-10 21:32 | NUR ---
PT CLEARED FOR DISCHARGE BY ADRIANNA STEPHENS. RECEIVED CALL FROM [employer] CONTROL SCHEDULER STATING THAT PT LEFT FACILITY.
[2021-08-10 21:35] VITALS: BP 0/0
--- NOTE | 2021-08-10 21:35 | NUR ---
Patient discharged, left without paperwork.
== END 2021-08-10 21:35 | disposition home or self-care (01) ==
LOC: MED 17:33
DX: S39.012A Strain of muscle, fascia and tendon of lower back, initial encounter (principal); S46.911A Strain of unspecified muscle, fascia and tendon at shoulder and upper arm level, right arm, initial encounter; R55 Syncope and collapse; R03.0 Elevated blood-pressure reading, without diagnosis of hypertension; K21.9 Gastro-esophageal reflux disease without esophagitis; Z86.73 Personal history of transient ischemic attack (TIA), and cerebral infarction without residual deficits; Z79.899 Other long term (current) drug therapy; Z79.891 Long term (current) use of opiate analgesic; Z88.0 Allergy status to penicillin; Z88.5 Allergy status to narcotic agent; X58.XXXA Exposure to other specified factors, initial encounter; Y92.009 Unspecified place in unspecified non-institutional (private) residence as the place of occurrence of the external cause; Y93.89 Activity, other specified; Y99.8 Other external cause status
CPT/HCPCS: 72100; 73030; 93005; 99284

== ENCOUNTER 2023-12-13 12:46 | Emergency (ER) | payer MEDICAID ==
[~2023-12-13] VITALS: Ht 182.9 cm; Wt 99.8 kg
[~2023-12-13 12:46] MED LIST changes: +ACET-8905 PO
[2023-12-13 12:50] VITALS: BP 111/72; PULSE 71; RESP 16; TEMP 98.7; O2SAT 98
[2023-12-13 13:00] VITALS: BP 111/72; PULSE 71; RESP 16; TEMP 98.7; O2SAT 98
[2023-12-13 14:27] LABS: BASOPHILS # (AUTO) 0.1 K/uL (0.00-0.22); BASOPHILS % (AUTO) 1.2 % (0.0-2.0); EOSINOPHILS # (AUTO) 0.1 K/uL (0-0.4); EOSINOPHILS % (AUTO) 2.8 % (0.0-4.0); HEMATOCRIT 40.3 % (36-52); HEMOGLOBIN 13.1 g/dL (12.0-18.0); LYMPHOCYTES # (AUTO) 1.5 K/uL (2.0-11.5); MEAN CORPUSCULAR HEMOGLOBIN 29 pg (27-31); MEAN CORPUSCULAR HGB CONC 33 g/dL (33-37); MEAN CORPUSCULAR VOLUME 87.3 fL (80-94); MONOCYTES # (AUTO) 0.3 K/uL (0.8-1.0); MONOCYTES % (AUTO) 4.9 % (1.7-9.3); NEUTROPHILS # (AUTO) 3.3 K/uL (1.8-7.7); NEUTROPHILS % (AUTO) 62.1 % (42.2-75.2); PLATELET COUNT (AUTO) 188 K/uL (140-450); RED BLOOD CELL COUNT(AUTO) 4.61 MIL/uL (4.20-6.10); RED CELL DISTRIBUTION WIDTH 14.9 % (11.6-13.7); WHITE BLOOD COUNT (AUTO) 5.3 K/uL (4.8-10.8)
[2023-12-13] MEDS: HYDROcodone/APAP 10/325 MG 1 TAB TAB PO STA (14:30)
[2023-12-13] MEDS: KETOROLAC 60 MG/2 ML VIAL IM ONE (14:30)
[2023-12-13 14:43] LABS: ALBUMIN 3.4 g/dL (3.4-5.0); BILIRUBIN,DIRECT 0.1 mg/dL (0.0-0.3); TOTAL BILIRUBIN 0.4 mg/dL (0.0-1.0); TOTAL PROTEIN, SERUM 7.1 g/dL (6.4-8.2)
[2023-12-13 14:46] LABS: ANION GAP 10.9 (8-16); CALCIUM 8.3 mg/dL (8.5-10.1); CARBON DIOXIDE 31.7 mmol/L (21-32); POTASSIUM 4.6 mmol/L (3.5-5.1)
[2023-12-13 14:54] LABS: BILIRUBIN,URINE 1+ (NEGATIVE); BLOOD, URINE TRACE-L (NEGATIVE); COLOR,URINE YELLOW (YELLOW); LEUKOCYTE ESTERASE ,URINE NEGATIVE (NEGATIVE); NITRITE, URINE NEGATIVE (NEGATIVE); PROTEIN,URINE 2+ (NEGATIVE); UGLUCOSE NEGATIVE (NEGATIVE)
[2023-12-13 15:08] LABS: APPEARANCE,URINE HAZY (CLEAR)
[2023-12-13 15:15] LABS: AMPHETAMINE, URINE POSITIVE ng/ml (NEG <=1000); BARBITURATE, URINE NEGATIVE ng/ml (NEG <=200); BENZODIAZEPINE, URINE NEGATIVE ng/mL (NEG <=200); CANNABINOID, URINE POSITIVE ng/mL (NEG <=50); COCAINE, URINE NEGATIVE ng/mL (NEG <=300); OPIATE, URINE NEGATIVE ng/mL (NEG <=2000); PHENCYCLIDINE SCREEN,URINE NEGATIVE ng/mL (NEG <=25)
[2023-12-13 15:18] LABS: ICTOTEST NEGATIVE (NEGATIVE)
[2023-12-13 15:19] LABS: BACTERIA,URINE 2+ /HPF (None Seen); RBC,URINE 0-5 /HPF (0-5); WBC,URINE 0-5 /HPF (0-5)
[2023-12-13 15:20] LABS: MUCUS,URINE 1+ /LPF (None Seen); SQUAMOUS EPITHELIAL CELL,UR 0-3 (FEW) /LPF (0-3 (FEW))
[2023-12-13] MEDS ORDERED: ACET-8905 PO (16:19)
== END 2023-12-13 16:30 | disposition home or self-care (01) ==
LOC: MED 12:46
DX: S16.1XXA Strain of muscle, fascia and tendon at neck level, initial encounter (principal); R10.9 Unspecified abdominal pain; M25.512 Pain in left shoulder; R07.81 Pleurodynia; M25.511 Pain in right shoulder; M54.50 Low back pain, unspecified; K21.9 Gastro-esophageal reflux disease without esophagitis; Z86.73 Personal history of transient ischemic attack (TIA), and cerebral infarction without residual deficits; Z79.899 Other long term (current) drug therapy; Z88.0 Allergy status to penicillin; Z88.5 Allergy status to narcotic agent; V89.2XXA Person injured in unspecified motor-vehicle accident, traffic, initial encounter; Y93.89 Activity, other specified; Y92.410 Unspecified street and highway as the place of occurrence of the external cause; Y99.8 Other external cause status
CPT/HCPCS: 36415; 71046; 72050; 73030; 74176; 80048; 80076; 80305; 81001; 83690; 85025; 96372; 99285; J1885